=== PATIENT | female | born 1950 | race Caucasian/White ===

== ENCOUNTER 2018-04-30 13:38 | Inpatient (IN) | payer MEDICARE, OTHER ==
[~2018-04-30] VITALS: Ht 170.1 cm; Wt 85.1 kg
[2018-04-30] VITALS (8 sets, daily range): BP systolic 143–192; BP diastolic 80–136
--- NOTE | ~2018-04-30 | EKG ---
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
--- NOTE | ~2018-04-30 | EKG ---
[place], [place] ELECTROCARDIOGRAM REPORT NAME: KELL BOYCE UNIT #: [id number] ROOM: 505 DOCTOR: JONES DRAFT REPORT BIRTHDATE: [birth year] [facility] Test Date: 2018-04-30 Test Time: 14:56:26 Pat Name: KELL BOYCE Department: Room: 505 Gender: F Special Education Coordinator: ELIO : 1950 Requested By: RENE KELLEY Order Number: [id number] Reading MD: Gurmeet Lee MD Measurements Intervals [place] Rate: 76 P: 37 CO: 140 QRS: 7 QRSD: 94 T: 12 QT: 392 QTc: 441 Interpretive Statements Sinus rhythm Electronically Signed On 04-30-2018 20:49:23 PDT by Gurmeet Lee MD CM:EKGRPT:ELECTROCARDIOGRAM REPORT [id number] RENE VALDIVIA DRAFT REPORT RENE KELLEY DO
[~2018-04-30 13:38] MED LIST: CALCIUM600 M1 PO; CIPROFLOXACIN500 MG PO; CLONAZEPAM1 MG PO; CRANBERRY CONC500 MG PO; MACROBID100 M1 PO; MEDROL DOSEPAK4 MG PO; MELATONIN5 M2 PO; MOTRIN800 MG PO; NAPROXEN220 MG PO; OMEPRAZOLE20 MG PO; TRIAMTERENE/HCT1 TA2 PO; UNITHROID PO; VITAMIN D31000 IU PO
[2018-04-30 14:21] LABS: BASO # 0.1 10*3/uL (0.0-0.1); BASO % 0.7 % (0.0-1.0); EOS # 0.1 10*3/uL (0.0-0.4); EOS % 0.8 % (1.0-4.0); HEMATOCRIT 40.7 % (37.0-47.0); LYMPH # 1.6 10*3/uL (1.3-4.4); LYMPH % 21.2 % (27.0-41.0); MEAN CELL VOLUME 93.1 fl (81.0-99.0); MEAN CORPUSCULAR HGB CONC 34.4 g/dl (33.0-37.0); MEAN PLATELET VOLUME 10.5 fl (9.6-12.3); MONO # 0.6 10*3/uL (0.1-1.0); MONO % 7.7 % (3.0-9.0); NEUT # 5.1 10*3/uL (2.3-7.9); NEUT % 69.2 % (47.0-73.0); PLATELET COUNT AUTOMATED 228 10*3/uL (130-400); RED BLOOD COUNT 4.37 10*6/uL (4.10-5.10); RED CELL DISTRI WIDTH 12.8 % (0-14.5); WHITE BLOOD COUNT 7.4 10*3/uL (4.8-10.8)
[2018-04-30 14:30] LABS: ACT PARTIAL THROMBO TIME 22.8 SECONDS (20.8-31.5); INTERNATIONAL NORM RATIO 0.9 (2.0-3.5)
[2018-04-30 14:41] LABS: ALKALINE PHOSPHATASE 79 U/L (45-117); BUN 21 mg/dl (7-24); CHLORIDE 101 mmol/L (98-107); CREATININE 0.95 mg/dL (0.55-1.02); LIPASE 201 U/L (73-393); POTASSIUM 3.4 mmol/L (3.5-5.1); SGOT/AST 18 IU/L (3-35); SGPT/ALT 25 U/L (12-78); SODIUM 137 mmol/L (136-145); TOTAL PROTEIN 8.1 gm/dL (6.4-8.2)
[2018-04-30 14:56] LABS: TROPONIN I < 0.015 ng/ml (<0.045)
[2018-04-30 15:22] LABS: BILIRUBIN NEGATIVE (NEGATIVE); BLOOD NEGATIVE (NEGATIVE); CLARITY CLEAR (CLEAR); COLOR YELLOW (YELLOW); GLUCOSE NEGATIVE (NEGATIVE); KETONE 1+ (NEGATIVE)
[2018-04-30 15:23] LABS: LEUKO ESTERASE 2+ (NEGATIVE); NITRITE NEGATIVE (NEGATIVE); UROBILINOGEN 0.2 E.U./dl (0.2-1.0)
[2018-04-30 15:24] LABS: BACTERIA TRACE; EPITHELIAL CELLS 20-25; RBC 0-2 rbc/hpf (0-2)
[2018-04-30] MEDS ORDERED: LASIX40 MG PO (20:23)
[2018-04-30] MEDS ORDERED: KLOR-CON M2020 ME1 PO (20:24)
[2018-04-30] MEDS ORDERED: SELENIUM200 MC4 PO (20:27)
[2018-04-30] MEDS ORDERED: CALCIUM500 M1 PO (20:27)
[2018-04-30] MEDS ORDERED: VITAMIN C1000 M5 PO (20:28)
[2018-04-30] MEDS ORDERED: ASPIRIN81 M1 PO (20:28)
[2018-05-01] VITALS: BP 145/68
[2018-05-01 06:23] LABS: BASO # 0.1 10*3/uL (0.0-0.1); BASO % 0.8 % (0.0-1.0); EOS # 0.1 10*3/uL (0.0-0.4); EOS % 0.9 % (1.0-4.0); HEMATOCRIT 38.3 % (37.0-47.0); LYMPH # 1.8 10*3/uL (1.3-4.4); LYMPH % 23.6 % (27.0-41.0); MEAN CELL VOLUME 94.1 fl (81.0-99.0); MEAN CORPUSCULAR HGB 31.9 pg (27.0-31.0); MEAN CORPUSCULAR HGB CONC 33.9 g/dl (33.0-37.0); MEAN PLATELET VOLUME 10.5 fl (9.6-12.3); MONO # 0.7 10*3/uL (0.1-1.0); MONO % 9.2 % (3.0-9.0); NEUT # 4.9 10*3/uL (2.3-7.9); NEUT % 65.4 % (47.0-73.0); PLATELET COUNT AUTOMATED 215 10*3/uL (130-400); RED BLOOD COUNT 4.07 10*6/uL (4.10-5.10); RED CELL DISTRI WIDTH 13.2 % (0-14.5); WHITE BLOOD COUNT 7.5 10*3/uL (4.8-10.8)
[2018-05-01 06:38] LABS: ALBUMIN 3.5 gm/dl (3.1-4.5); ALKALINE PHOSPHATASE 66 U/L (45-117); BUN 18 mg/dl (7-24); CHLORIDE 103 mmol/L (98-107); CHOLESTEROL 236 mg/dL (<200); CREATININE 0.85 mg/dL (0.55-1.02); FREE T4 1.79 ng/dl (0.76-1.46); HDL CHOLESTEROL 57 mg/dl (40-60); LDL CHOLESTEROL 163 mg/dL (9-159); POTASSIUM 3.4 mmol/L (3.5-5.1); SGOT/AST 15 IU/L (3-35); SGPT/ALT 20 U/L (12-78); SODIUM 140 mmol/L (136-145); TOTAL PROTEIN 6.9 gm/dL (6.4-8.2); TRIGLYCERIDES 80 mg/dl (<150); VLDL CHOLESTEROL 16 mg/dL (6-40)
[2018-05-01 07:07] LABS: ACT PARTIAL THROMBO TIME 22.8 SECONDS (20.8-31.5)
[2018-05-01 07:50] LABS: VITAMIN D, 25-HYDROXY 57.7 ng/mL (30-100)
[2018-05-01 08:00] VITALS: BP 170/92
[2018-05-01 12:00] VITALS: BP 135/66
[2018-05-01 16:00] VITALS: BP 150/75
[2018-05-01 20:00] VITALS: BP 137/49
[2018-05-02] VITALS: BP 111/53
[2018-05-02 07:53] LABS: BASO # 0.1 10*3/uL (0.0-0.1); BASO % 0.8 % (0.0-1.0); EOS # 0.1 10*3/uL (0.0-0.4); EOS % 1.8 % (1.0-4.0); HEMATOCRIT 41.7 % (37.0-47.0); HEMOGLOBIN 13.9 g/dl (12.0-16.0); LYMPH # 1.7 10*3/uL (1.3-4.4); LYMPH % 24.1 % (27.0-41.0); MEAN CELL VOLUME 95.4 fl (81.0-99.0); MEAN CORPUSCULAR HGB 31.8 pg (27.0-31.0); MEAN CORPUSCULAR HGB CONC 33.3 g/dl (33.0-37.0); MEAN PLATELET VOLUME 10.6 fl (9.6-12.3); MONO # 0.5 10*3/uL (0.1-1.0); MONO % 7.1 % (3.0-9.0); NEUT # 4.7 10*3/uL (2.3-7.9); NEUT % 65.9 % (47.0-73.0); PLATELET COUNT AUTOMATED 206 10*3/uL (130-400); RED BLOOD COUNT 4.37 10*6/uL (4.10-5.10); RED CELL DISTRI WIDTH 13.3 % (0-14.5); WHITE BLOOD COUNT 7.1 10*3/uL (4.8-10.8)
[2018-05-02 08:01] LABS: BUN 16 mg/dl (7-24); CHLORIDE 105 mmol/L (98-107); CREATININE 0.85 mg/dL (0.55-1.02); POTASSIUM 3.7 mmol/L (3.5-5.1); SODIUM 139 mmol/L (136-145)
[2018-05-02 08:48] VITALS: BP 122/66
[2018-05-02 12:00] VITALS: BP 118/76
[2018-05-02] MEDS ORDERED: NEURONTIN300 MG PO (12:44)
[2018-05-02] MEDS ORDERED: LISINOPRIL10 M1 PO (12:44)
[2018-05-02] MEDS ORDERED: AMINOPHYLLIN200 MG PO (12:48)
== END 2018-05-02 14:00 | disposition home or self-care (01) | DRG 690 ==
LOC: ED 13:38 → 5E 17:18 → EDHOLD 17:18 → 5E 17:49
PROVIDERS: Emergency Medicine; Internal Medicine; Student in an Organized Health Care Education/Training Program
DX: N39.0 Urinary tract infection, site not specified (principal); I16.1 Hypertensive emergency; F41.9 Anxiety disorder, unspecified; E78.5 Hyperlipidemia, unspecified; K44.9 Diaphragmatic hernia without obstruction or gangrene; R55 Syncope and collapse; E89.0 Postprocedural hypothyroidism; E87.6 Hypokalemia; B96.20 Unspecified Escherichia coli [E. coli] as the cause of diseases classified elsewhere; R73.9 Hyperglycemia, unspecified; M79.2 Neuralgia and neuritis, unspecified; H53.9 Unspecified visual disturbance; D72.810 Lymphocytopenia; R00.0 Tachycardia, unspecified; Z86.73 Personal history of transient ischemic attack (TIA), and cerebral infarction without residual deficits; Z90.49 Acquired absence of other specified parts of digestive tract; Z82.49 Family history of ischemic heart disease and other diseases of the circulatory system; Z84.89 Family history of other specified conditions; Z91.041 Radiographic dye allergy status; Z88.1 Allergy status to other antibiotic agents; Z88.8 Allergy status to other drugs, medicaments and biological substances; Z79.82 Long term (current) use of aspirin; Z79.899 Other long term (current) drug therapy; Z86.79 Personal history of other diseases of the circulatory system

== ENCOUNTER → 2019-10-01 | Outpatient (CLI) | payer MEDICARE ==
[~2019-10-01] MED LIST changes: +AMINOPHYLLIN200 MG PO; +ASPIRIN81 M1 PO; +CALCIUM500 M1 PO; +KLOR-CON M2020 ME1 PO; +LASIX40 MG PO; +LISINOPRIL10 M1 PO; +NEURONTIN300 MG PO; +SELENIUM200 MC4 PO; +VITAMIN C1000 M5 PO
[2019-10-01 10:26] LABS: BASO # 0.1 10*3/uL (0.0-0.1); BASO % 1.6 % (0.0-1.0); EOS # 0.4 10*3/uL (0.0-0.4); EOS % 7.9 % (1.0-4.0); HEMATOCRIT 35.9 % (37.0-47.0); HEMOGLOBIN 11.1 g/dl (12.0-16.0); LYMPH # 1.3 10*3/uL (1.3-4.4); LYMPH % 25.1 % (27.0-41.0); MEAN CELL VOLUME 102.9 fl (81.0-99.0); MEAN CORPUSCULAR HGB 31.8 pg (27.0-31.0); MEAN CORPUSCULAR HGB CONC 30.9 g/dl (33.0-37.0); MEAN PLATELET VOLUME 10.8 fl (9.6-12.3); MONO # 0.5 10*3/uL (0.1-1.0); NEUT # 2.8 10*3/uL (2.3-7.9); PLATELET COUNT AUTOMATED 191 10*3/uL (130-400); RED BLOOD COUNT 3.49 10*6/uL (4.10-5.10); RED CELL DISTRI WIDTH 14.2 % (0-14.5); WHITE BLOOD COUNT 5.1 10*3/uL (4.8-10.8)
[2019-10-01 10:58] LABS: ALBUMIN 3.7 gm/dl (3.1-4.5); CREATININE 1.4 mg/dL (0.55-1.02); POTASSIUM 4.6 mmol/L (3.5-5.1)
[2019-10-01 10:59] LABS: TOTAL PROTEIN 6.9 gm/dL (6.4-8.2)
== END | disposition home or self-care (01) ==
LOC: LAB 09:31
DX: R00.0 Tachycardia, unspecified (principal); C50.911 Malignant neoplasm of unspecified site of right female breast

== ENCOUNTER → 2020-05-01 | Outpatient (CLI) | payer MEDICARE ==
[2020-05-01 11:03] LABS: BILIRUBIN Negative (Negative); BLOOD Negative (Negative); CLARITY Clear (Clear); COLOR Yellow (Yellow); GLUCOSE Negative (Negative); KETONE Negative (Negative); LEUKO ESTERASE Trace (Negative); NITRITE Negative (Negative); UROBILINOGEN 0.2 E.U./dl (0.0-1.0)
[2020-05-01 11:21] LABS: BACTERIA 3+
== END | disposition home or self-care (01) ==
LOC: LAB 10:12
PROVIDERS: ATTEND Urology
DX: N39.0 Urinary tract infection, site not specified (principal)

== ENCOUNTER 2023-09-21 16:03 | Emergency (ER) | payer OTHER ==
[~2023-09-21] VITALS: Ht 162.5 cm; Wt 76.2 kg
[~2023-09-21 16:03] MED LIST changes: +CLARITIN10 MG PO; +CO Q10100 MG PO; +GREEN TEA EXTR250 MG PO; +RESVERATROL250 MG PO
[2023-09-21] MEDS ORDERED: LASIX20 MG PO (17:09)
[2023-09-21] MEDS ORDERED: POTASSIUM CHLO10 ME4 PO (17:15)
[2023-09-21] MEDS ORDERED: OMEPRAZOLE20 M3 PO (17:15)
[2023-09-21 17:16] LABS: BASO # 0.1 10*3/uL (0.0-0.1); EOS # 0.2 10*3/uL (0.0-0.4); EOS % 3.1 % (1.0-4.0); HEMATOCRIT 37.2 % (37.0-47.0); LYMPH # 1.6 10*3/uL (1.3-4.4); LYMPH % 26.7 % (27.0-41.0); MEAN CELL VOLUME 103.6 fl (81.0-99.0); MEAN CORPUSCULAR HGB CONC 32.8 g/dl (33.0-37.0); MEAN PLATELET VOLUME 9.9 fl (9.6-12.3); MONO # 0.6 10*3/uL (0.1-1.0); MONO % 9.4 % (3.0-9.0); NEUT # 3.5 10*3/uL (2.3-7.9); NEUT % 59.6 % (47.0-73.0); PLATELET COUNT AUTOMATED 195 10*3/uL (130-400); RED BLOOD COUNT 3.59 10*6/uL (4.10-5.10); RED CELL DISTRI WIDTH 12.4 % (0-14.5); WHITE BLOOD COUNT 5.9 10*3/uL (4.8-10.8)
[2023-09-21] MEDS ORDERED: ZESTRIL,PRINIVIL5 MG PO (17:16)
[2023-09-21] MEDS ORDERED: VALACYCLOVIR H500 MG PO (17:21)
[2023-09-21] MEDS ORDERED: KLONOPIN1 M1 PO (17:22)
[2023-09-21] MEDS ORDERED: NEURONTIN300 MG PO (17:23)
[2023-09-21] MEDS ORDERED: MELATONIN10 M2 PO (17:24)
[2023-09-21] MEDS ORDERED: CO Q-10200 MG PO (17:25)
[2023-09-21] MEDS ORDERED: L-LYSINE500 M2 PO (17:26)
[2023-09-21] MEDS ORDERED: C-10001000 MG PO (17:26)
[2023-09-21 17:40] LABS: ALKALINE PHOSPHATASE 49 U/L (46-116); BUN 16 mg/dl (9-23); CHLORIDE 108 mmol/L (98-107); LIPASE 29 U/L (12-53); POTASSIUM 3.9 mmol/L (3.4-5.1); SGPT/ALT 12 U/L (5-49); TOTAL PROTEIN 6.6 gm/dL (6.0-8.0)
[2023-09-21] MEDS ORDERED: amLODIPine besylate 10 MG TAB PO ONE (17:50)
[2023-09-21] MEDS ORDERED: NORVASC5 MG PO (20:13)
[2023-09-21 20:29] VITALS: BP 180/100
== END 2023-09-21 20:40 | disposition home or self-care (01) ==
LOC: ED 16:03
PROVIDERS: Emergency Medicine
DX: I10 Essential (primary) hypertension (principal); R51.9 Headache, unspecified; F41.9 Anxiety disorder, unspecified; Z86.73 Personal history of transient ischemic attack (TIA), and cerebral infarction without residual deficits; F32.A Depression, unspecified; K21.9 Gastro-esophageal reflux disease without esophagitis; R10.2 Pelvic and perineal pain; Z91.041 Radiographic dye allergy status; Z88.1 Allergy status to other antibiotic agents; Z88.8 Allergy status to other drugs, medicaments and biological substances; Z90.49 Acquired absence of other specified parts of digestive tract; Z98.890 Other specified postprocedural states; Z90.11 Acquired absence of right breast and nipple

== ENCOUNTER → 2023-11-24 | Outpatient (CLI) | payer OTHER ==
[~2023-11-24] MED LIST changes: +C-10001000 MG PO; +CO Q-10200 MG PO; +KLONOPIN1 M1 PO; +L-LYSINE500 M2 PO; +LASIX20 MG PO; +MELATONIN10 M2 PO; +NORVASC5 MG PO; +OMEPRAZOLE20 M3 PO; +POTASSIUM CHLO10 ME4 PO; +VALACYCLOVIR H500 MG PO; +ZESTRIL,PRINIVIL5 MG PO
== END | disposition home or self-care (01) ==
LOC: CT 01:46
PROVIDERS: ATTEND Urology
DX: N20.0 Calculus of kidney (principal); N30.10 Interstitial cystitis (chronic) without hematuria; R11.0 Nausea; K76.89 Other specified diseases of liver; N28.1 Cyst of kidney, acquired; K57.30 Diverticulosis of large intestine without perforation or abscess without bleeding; M47.816 Spondylosis without myelopathy or radiculopathy, lumbar region; M41.86 Other forms of scoliosis, lumbar region; Z90.49 Acquired absence of other specified parts of digestive tract

== ENCOUNTER 2023-11-29 16:33 | Emergency (ER) | payer OTHER ==
[~2023-11-29] VITALS: Wt 74.8 kg
[~2023-11-29 16:33] MED LIST changes: -GADOTERATE MEGLUMINE 7.5 MMOL/15 ML VIAL IV ONE
[2023-11-29 16:52] VITALS: BP 165/88
[2023-11-29] MEDS ORDERED: methylPREDNISolone sod succ 125 MG VIAL IM ONE (17:10)
== END 2023-11-29 17:27 | disposition home or self-care (01) ==
LOC: ED 16:33
DX: R13.10 Dysphagia, unspecified (principal); T50.995A Adverse effect of other drugs, medicaments and biological substances, initial encounter; F41.9 Anxiety disorder, unspecified; I10 Essential (primary) hypertension; E78.5 Hyperlipidemia, unspecified; E87.6 Hypokalemia; E03.9 Hypothyroidism, unspecified; Z86.73 Personal history of transient ischemic attack (TIA), and cerebral infarction without residual deficits; F32.A Depression, unspecified; K21.9 Gastro-esophageal reflux disease without esophagitis; Z91.041 Radiographic dye allergy status; Z88.8 Allergy status to other drugs, medicaments and biological substances; Z90.49 Acquired absence of other specified parts of digestive tract; Z98.890 Other specified postprocedural states; Z90.11 Acquired absence of right breast and nipple; Y92.89 Other specified places as the place of occurrence of the external cause

== ENCOUNTER → 2023-11-29 | Outpatient (CLI) | payer OTHER ==
[~2023-11-29] MED LIST changes: +GADOTERATE MEGLUMINE 7.5 MMOL/15 ML VIAL IV ONE
== END | disposition home or self-care (01) ==
LOC: MRI 11-24 13:00
PROVIDERS: ATTEND Physician Assistant
DX: G93.89 Other specified disorders of brain (principal); I63.89 Other cerebral infarction; I67.1 Cerebral aneurysm, nonruptured; G45.9 Transient cerebral ischemic attack, unspecified

== ENCOUNTER 2023-12-22 19:40 | Emergency (ER) | payer OTHER ==
[~2023-12-22] VITALS: Ht 152.4 cm; Wt 72.6 kg
[2023-12-22 19:40] VITALS: BP 154/86
[2023-12-22] MEDS ORDERED: VERAPAMIL HCL120 M2 PO (19:54)
[2023-12-22] MEDS ORDERED: LISINOPRIL10 M1 PO (19:55)
[2023-12-22] MEDS ORDERED: LEVOTHYROXINE112 MC1 PO (19:56)
[2023-12-22] MEDS ORDERED: Metoclopramide Hydrochloride 10 MG/2 ML AMP IV ONE (20:55)
[2023-12-22] MEDS ORDERED: SODIUM CHLORIDE 0.9% 1,000 ML IV ONE (20:55)
[2023-12-22] MEDS ORDERED: diphenhydrAMINE hydrochloride 50 MG/ML VIAL IV ONE (20:55)
[2023-12-22 21:22] LABS: BASO # 0.1 10*3/uL (0.0-0.1); BASO % 1.1 % (0.0-1.0); EOS # 0.3 10*3/uL (0.0-0.4); EOS % 3.9 % (1.0-4.0); HEMATOCRIT 33.5 % (37.0-47.0); LYMPH # 1.8 10*3/uL (1.3-4.4); LYMPH % 23.9 % (27.0-41.0); MEAN CORPUSCULAR HGB 34.2 pg (27.0-31.0); MEAN CORPUSCULAR HGB CONC 32.8 g/dl (33.0-37.0); MEAN PLATELET VOLUME 9.3 fl (9.6-12.3); MONO # 0.7 10*3/uL (0.1-1.0); NEUT # 4.6 10*3/uL (2.3-7.9); NEUT % 61.8 % (47.0-73.0); PLATELET COUNT AUTOMATED 229 10*3/uL (130-400); RED BLOOD COUNT 3.22 10*6/uL (4.10-5.10); RED CELL DISTRI WIDTH 12.7 % (0-14.5); WHITE BLOOD COUNT 7.4 10*3/uL (4.8-10.8)
[2023-12-22 21:23] LABS: BILIRUBIN Negative (Negative); BLOOD Negative (Negative); CLARITY Clear (Clear); COLOR Dark Yellow (Yellow); GLUCOSE Negative (Negative); KETONE Negative (Negative); LEUKO ESTERASE Negative (Negative); NITRITE Positive (Negative); PH 5.5 (4.5-8.0); SPECIFIC GRAVITY <= 1.005 (1.001-1.030)
[2023-12-22 21:33] LABS: BACTERIA 1+; RBC 0-2 rbc/hpf (0-2)
[2023-12-22 21:35] LABS: ACT PARTIAL THROMBO TIME 23.6 SECONDS (20.0-32.1)
[2023-12-22 21:42] LABS: ALKALINE PHOSPHATASE 55 U/L (46-116); BUN 22 mg/dl (9-23); CHLORIDE 102 mmol/L (98-107); LIPASE 53 U/L (12-53); SGPT/ALT 12 U/L (5-49); TOTAL PROTEIN 6.5 gm/dL (6.0-8.0)
[2023-12-22] MEDS ORDERED: CIPRO500 MG PO (23:30)
[2023-12-22] MEDS ORDERED: REGLAN10 M1 PO (23:30)
== END 2023-12-22 23:43 | disposition home or self-care (01) ==
LOC: ED 19:40
PROVIDERS: Internal Medicine
DX: N39.0 Urinary tract infection, site not specified (principal); R11.2 Nausea with vomiting, unspecified; R19.7 Diarrhea, unspecified; F41.9 Anxiety disorder, unspecified; Z86.73 Personal history of transient ischemic attack (TIA), and cerebral infarction without residual deficits; F32.A Depression, unspecified; K21.9 Gastro-esophageal reflux disease without esophagitis; I10 Essential (primary) hypertension; Z91.041 Radiographic dye allergy status; Z88.8 Allergy status to other drugs, medicaments and biological substances; Z90.49 Acquired absence of other specified parts of digestive tract; Z98.890 Other specified postprocedural states; Z90.11 Acquired absence of right breast and nipple

== ENCOUNTER 2023-12-28 08:58 | Emergency (ER) | payer OTHER ==
[~2023-12-28] VITALS: Ht 162.5 cm; Wt 77.1 kg
[~2023-12-28 08:58] MED LIST changes: +CIPRO500 MG PO; +LEVOTHYROXINE112 MC1 PO; +REGLAN10 M1 PO; +VERAPAMIL HCL120 M2 PO
[2023-12-28] MEDS ORDERED: LACTULOSE 20 GM/30 ML UDC PO ONE (09:20)
[2023-12-28] MEDS ORDERED: SODIUM POLYSTYRENE SULFONATE 15 GM/60 ML BOT PO ONE (09:20)
[2023-12-28 11:07] VITALS: BP 139/65
[2023-12-28] MEDS ORDERED: LACTULOSE20 GM/30 M PO (11:26)
== END 2023-12-28 11:46 | disposition home or self-care (01) ==
LOC: ED 08:58
DX: K59.00 Constipation, unspecified (principal); F41.9 Anxiety disorder, unspecified; Z86.73 Personal history of transient ischemic attack (TIA), and cerebral infarction without residual deficits; F32.A Depression, unspecified; K21.9 Gastro-esophageal reflux disease without esophagitis; I10 Essential (primary) hypertension; Z88.8 Allergy status to other drugs, medicaments and biological substances; Z91.041 Radiographic dye allergy status; Z90.49 Acquired absence of other specified parts of digestive tract; Z98.890 Other specified postprocedural states; Z90.11 Acquired absence of right breast and nipple

== ENCOUNTER 2023-12-28 18:03 | Emergency (ER) | payer OTHER ==
[~2023-12-28 18:03] MED LIST changes: +LACTULOSE20 GM/30 M PO
== END 2023-12-28 19:10 | disposition left against medical advice (07) ==
LOC: ED 18:03
DX: R10.9 Unspecified abdominal pain (principal); Z91.041 Radiographic dye allergy status; Z88.8 Allergy status to other drugs, medicaments and biological substances; Z53.21 Procedure and treatment not carried out due to patient leaving prior to being seen by health care provider

== ENCOUNTER → 2024-01-12 | Outpatient (CLI) | payer OTHER | END | disposition home or self-care (01) | LOC: US 01:03 | PROVIDERS: ATTEND Physician Assistant | DX: I65.23 Occlusion and stenosis of bilateral carotid arteries (principal); R00.2 Palpitations; F41.9 Anxiety disorder, unspecified; H93.A9 Pulsatile tinnitus, unspecified ear; R00.0 Tachycardia, unspecified ==

== ENCOUNTER → 2024-01-22 | Outpatient (CLI) | payer OTHER | END | disposition home or self-care (01) | LOC: CARD 01:14 | PROVIDERS: ATTEND Physician Assistant | DX: I08.1 Rheumatic disorders of both mitral and tricuspid valves (principal); R00.2 Palpitations ==

== ENCOUNTER 2024-04-06 12:32 | Emergency (ER) | payer OTHER ==
[~2024-04-06] VITALS: Ht 162.5 cm; Wt 74.8 kg
[2024-04-06 13:03] VITALS: BP 172/110
[2024-04-06 14:09] LABS: BILIRUBIN Negative (Negative); BLOOD Negative (Negative); CLARITY Clear (Clear); COLOR Yellow (Yellow); GLUCOSE Negative (Negative); KETONE Negative (Negative); LEUKO ESTERASE Negative (Negative); NITRITE Negative (Negative); PH 6.5 (4.5-8.0); SPECIFIC GRAVITY <= 1.005 (1.001-1.030); UROBILINOGEN 0.2 E.U./dl (0.0-1.0)
[2024-04-06] MEDS ORDERED: Phenazopyridine Hydrochlorid2 100 MG TAB PO ONE (14:35)
[2024-04-06] MEDS ORDERED: Ondansetron Hydrochloride 4 MG TAB SL ONE (15:05)
[2024-04-06 15:06] LABS: BACTERIA TRACE; EPITHELIAL CELLS 0-2
[2024-04-06] MEDS ORDERED: PYRIDIUM100 MG PO (16:39)
[2024-04-06] MEDS ORDERED: Ondansetron4 MG SL (16:39)
== END 2024-04-06 17:26 | disposition home or self-care (01) ==
LOC: ED 12:32
PROVIDERS: Internal Medicine
DX: N30.10 Interstitial cystitis (chronic) without hematuria (principal); F41.9 Anxiety disorder, unspecified; Z86.73 Personal history of transient ischemic attack (TIA), and cerebral infarction without residual deficits; F32.A Depression, unspecified; K21.9 Gastro-esophageal reflux disease without esophagitis; I10 Essential (primary) hypertension; Z91.041 Radiographic dye allergy status; Z88.8 Allergy status to other drugs, medicaments and biological substances; Z88.1 Allergy status to other antibiotic agents; Z90.49 Acquired absence of other specified parts of digestive tract; Z98.890 Other specified postprocedural states

== ENCOUNTER 2025-03-06 12:39 | Emergency (ER) | payer OTHER ==
[~2025-03-06] VITALS: Ht 167.6 cm; Wt 82.7 kg
[~2025-03-06 12:39] MED LIST changes: +Ondansetron4 MG SL; +PYRIDIUM100 MG PO
[2025-03-06 13:28] LABS: BILIRUBIN 1+ (Negative); BLOOD Negative (Negative); CLARITY Cloudy (Clear); COLOR Orange (Yellow); KETONE Negative (Negative); LEUKO ESTERASE 1+ (Negative); NITRITE Positive (Negative); PH 6.0 (4.5-8.0); SPECIFIC GRAVITY 1.015 (1.001-1.030); UROBILINOGEN 1.0 E.U./dl (0.0-1.0)
[2025-03-06 13:53] LABS: BACTERIA TRACE
[2025-03-06] MEDS ORDERED: SODIUM CHLORIDE 0.9% 500 ML IV ONE (15:10)
[2025-03-06 15:37] LABS: MEAN CELL VOLUME 102.7 fl (81.0-99.0); MEAN CORPUSCULAR HGB 33.8 pg (27.0-31.0); MEAN PLATELET VOLUME 10.0 fl (9.6-12.3); NUCLEATED RED BLOOD CELL 0.0 % (0.0-0.0); NUCLEATED RED BLOOD CELL 0.0 10*3/uL (0.0-0.0); PLATELET COUNT AUTOMATED 178 10*3/uL (130-400); RED CELL DISTRI WIDTH 12.8 % (0-14.5)
[2025-03-06 15:39] LABS: MANUAL DIFF REFLEX YES
[2025-03-06 15:56] LABS: BUN 24.0 mg/dl (9-23)
[2025-03-06 16:01] LABS: PLATELET SUFFICIENCY NORMAL (NORMAL)
[2025-03-06] MEDS ORDERED: CIPRO500 MG PO (16:31)
== END 2025-03-06 16:37 | disposition home or self-care (01) ==
LOC: ED 12:39
PROVIDERS: Internal Medicine; Nurse Practitioner Family
DX: N30.01 Acute cystitis with hematuria (principal); D72.829 Elevated white blood cell count, unspecified; I10 Essential (primary) hypertension; K21.9 Gastro-esophageal reflux disease without esophagitis; F32.A Depression, unspecified; F41.9 Anxiety disorder, unspecified; Z79.899 Other long term (current) drug therapy; Z88.1 Allergy status to other antibiotic agents; Z88.8 Allergy status to other drugs, medicaments and biological substances; Z91.041 Radiographic dye allergy status; Z90.49 Acquired absence of other specified parts of digestive tract; Z90.89 Acquired absence of other organs; Z98.890 Other specified postprocedural states